=== PATIENT | male | born 1990 | race Caucasian/White ===

== ENCOUNTER 2018-03-08 09:36 | Day surgery (SDC) | payer BC ==
[2018-03-07 15:17] VITALS: BMI 37.1
[2018-03-08] MEDS ORDERED: MIDAZOLAM HCL 2 MG/2 ML SINGLE DOSE VIAL ONE ×2 (11:46→12:19)
[2018-03-08] MEDS ORDERED: ROPIVACAINE HCL 0.5% 30ML VIAL ONE (11:46)
[2018-03-08] MEDS ORDERED: LIDOCAINE HCL/PF 2% SDV 5ML VIAL ONE (12:19)
[2018-03-08] MEDS ORDERED: PROPOFOL 20 ML ONE ×2 (12:19→12:54)
[2018-03-08] MEDS ORDERED: ROCURONIUM BROMIDE 50 MG/5 ML VIAL ONE (12:19)
[2018-03-08] MEDS ORDERED: BUPIVACAINE HCL 0.25% 125 MG/50 ML VIAL ONE ×2 (12:57→13:56)
[2018-03-08] MEDS ORDERED: ceFAZolin SODIUM 1 GM VIAL ONE (13:08)
[2018-03-08] MEDS ORDERED: ONDANSETRON 4 MG/2 ML VIAL ONE (14:21)
[2018-03-08] MEDS ORDERED: ONDANSETRON 4 MG/2 ML VIAL IVPUSH ONE (14:23)
[2018-03-08 15:08] VITALS: TEMP 98.1
[2018-03-08] MEDS ORDERED: oxyCODONE HCL 5 MG TABLET PO PRN (15:12)
[2018-03-08] MEDS ORDERED: ONDANSETRON 4 MG/2 ML VIAL IVPUSH PRN (15:12)
[2018-03-08] MEDS ORDERED: LACTATED RINGERS SOLUTION 1,000 ML IV SCH (15:15)
[2018-03-08 16:20] VITALS: BP 126/73; PULSE 61
--- NOTE | 2018-03-08 18:02 | OP ---
DATE OF OPERATION: 03/08/2018 LOCATION: [facility]. SURGEON: Sal Marks MD ORE FEEDER: DOMINGUEZ Linares PREOPERATIVE DIAGNOSIS: Left elbow distal biceps rupture/avulsion. POSTOPERATIVE DIAGNOSIS: Left elbow distal biceps rupture/avulsion. PROCEDURE: Repair and reinsertion of left elbow distal biceps. FINDINGS: Avulsed left elbow distal biceps tendon. DESCRIPTION OF PROCEDURE: Informed consent was obtained. The patient came to the operating room, where the left upper extremity was prepped and draped in sterile fashion. Tourniquet was placed on the upper arm, inflated to 250 mmHg. Horizontal incision was made 2 cm distal to the elbow crease. Biceps tendon was found subfascial and removed with scar tissue. A number 2 FiberWire was used in a Krackow interlocking stitch, followed by a second FiberWire. This was attached to the ToggleLoc interlocking biceps device. The soft tissue was removed from the radial tuberosity, and using the ToggleLoc system, an 8-mm anterior drill for the anterior cortex and a 4-mm for the distal cortex. The ToggleLoc device was placed through the holes and locked on the posterior side, allowing for bringing the tendon into the bleeding bone cortex. This was found to be stable. This was secured by sewing it into place. Wound was then irrigated with copious amounts of irrigation as it was multiple times during the case. Tourniquet was released. There was no evidence of arterial bleeding. Layer closure of 2-0 Vicryl and 3-0 Prolene was performed. Sterile dressing was placed. Patient was transferred to the recovery room without complication. SAL MARKS M.D. [id number]
--- NOTE | 2018-03-12 16:42 | PATH ---
Surgical Pathology Report Patient Name: TAISHA PERALTA [facility]. Rec. #: [id number] /Age/Gender: 1990 (Age: 27) / M Account: [id number] Location: [facility] Taken: 03/08/2018 Received: 03/08/2018 Reported: 03/12/2018 Physicians: Joey Rodas M.D. Specimen(s) Received RUPTURE LEFT BICEPS TENDON Clinical History Ruptured left biceps tendon Final Diagnosis BICEPS TENDON, LEFT, REPAIR: DENSE FIBROCONNECTIVE TISSUE WITH MILD CHRONIC INFLAMMATION, FOCAL HEMORRHAGE, RARE MICROCALCIFICATIONS, AND REACTIVE CHANGES. Electronically Signed Addie García M.D. Gross Description Received in formalin labeled "ruptured left biceps tendon", is an irregular fontanez soft tissue measuring 2.3 x 1 x 0.5 cm. The specimen is bisected and entirely submitted one cassette. ISMAEL/03/11/2018 krissy/03/11/2018
== END 2018-03-08 16:20 | disposition home or self-care (01) ==
LOC: FASU 09:36
PROVIDERS: ATTEND Orthopaedic Surgery
PROC: 0LM40ZZ Reattachment of Left Upper Arm Tendon, Open Approach (ICD-10-PCS; principal; 2018-03-08 13:17)
DX: S46.211A Strain of muscle, fascia and tendon of other parts of biceps, right arm, initial encounter (principal); X58.XXXA Exposure to other specified factors, initial encounter; Y93.9 Activity, unspecified; Y92.9 Unspecified place or not applicable
CPT/HCPCS: 88304-TC; 94760